=== PATIENT | female | born 1995 | race Caucasian/White ===

== ENCOUNTER 2017-06-06 00:06 | Inpatient (IN) | payer MEDICAID ==
[2017-06-06] MEDS ORDERED: Butorphanol 1 MG/ML SDV IVPUSH PRN (00:37)
[2017-06-06] MEDS ORDERED: Terbutaline 1 MG/ML SDV SUBCUT PRN (00:37)
[2017-06-06] MEDS ORDERED: Sodium Chloride 0.9% 2.5 ML Syringe FLUSH PRN (00:37)
[2017-06-06] MEDS ORDERED: Carboprost Tromethamine 250 MCG/1 ML Amp IM PRN (00:37)
[2017-06-06] MEDS ORDERED: Methylergonovine 0.2 MG/1 ML Amp IM PRN (00:37)
[2017-06-06] MEDS ORDERED: Tranexamic Acid 1,000 MG in Sodium Chloride 0.9% 100 ML IV PRN (00:37)
[2017-06-06] MEDS ORDERED: Sodium Chloride 0.9% 10 ML Syringe FLUSH PRN (00:37)
[2017-06-06] MEDS ORDERED: Water For Irrigation,Sterile 1,000 ML Container IRR PRN (00:37)
[2017-06-06] MEDS ORDERED: Lidocaine 1% 50 ML MDV INJECT PRN (00:37)
[2017-06-06] MEDS ORDERED: Nalbuphine 10 MG/1 ML Vial IVPUSH PRN (00:37)
[2017-06-06] MEDS ORDERED: Misoprostol 200 MCG Tab PO PRN (00:37)
[2017-06-06] MEDS ORDERED: Oxytocin/0.9 % Sodium Chloride 30 UNIT/500 ML BAG IV SCH ×2 (00:45→02:45)
[2017-06-06] MEDS ORDERED: Misoprostol 25 MCG (1/4 of 100 MCG) Tab VAG SCH (01:00)
[2017-06-06] MEDS: Lactated Ringers 1,000 ML IV SCH ×3 (02:50→15:15)
[2017-06-06] MEDS ORDERED: Misoprostol 25 MCG (1/4 of 100 MCG) Tab VAG PRN (05:00)
[2017-06-06] MEDS ORDERED: Ropivacaine 0.2% 2 MG/ML 20 ML SDV ONE (07:42)
--- NOTE | 2017-06-06 08:10 | PCM.PREANE ---
Preanesthetic Assessment - Procedure Proposed Procedure: labor epidural induction for polyhydramnios - Anesthesia/Transfusion/Family Hx Anesthesia History: Prior Anesthesia Without Reaction Family History of Anesthesia Reaction: No Transfusion History: No Prior Transfusion(s) - Review of Systems Other: Reports: None - Physical Assessment Height: 5 ft 10 in Weight: 121.109 kg ASA Class: 2 Mental Status: Alert & Oriented x3 Airway Class: Mallampati = 2 Dentition: Reports: Normal Dentition Thyro-Mental Finger Breadths: 3 Mouth Opening Finger Breadths: 3 ROM/Head Extension: Full - Lab Values: Laboratory Last Values WBC 11.06 K/uL (4.0-11.0) H 06/06/17 01:08 RBC 3.92 M/uL (4.30-5.90) L 06/06/17 01:08 Hgb 11.3 g/dL (12.0-16.0) L 06/06/17 01:08 Hct 34.0 % (36.0-46.0) L 06/06/17 01:08 MCV 86.7 fL (80.0-98.0) 06/06/17 01:08 MCH 28.8 pg (27.0-32.0) 06/06/17 01:08 MCHC 33.2 g/dL (31.0-37.0) 06/06/17 01:08 RDW Std Deviation 45.3 fl (28.0-62.0) 06/06/17 01:08 RDW Coeff of Sebastien 15 % (11.0-15.0) 06/06/17 01:08 Plt Count 220 K/uL (150-400) 06/06/17 01:08 MPV 9.60 fL (7.40-12.00) 06/06/17 01:08 Nucleated RBC % 0.0 /100WBC 06/06/17 01:08 Nucleated RBCs # 0 K/uL 06/06/17 01:08 Urine Opiates Screen NEGATIVE (NEGATIVE) 06/06/17 01:50 Ur Oxycodone Screen NEGATIVE (NEGATIVE) 06/06/17 01:50 Urine Methadone Screen NEGATIVE (NEGATIVE) 06/06/17 01:50 Ur Barbiturates Screen NEGATIVE (NEGATIVE) 06/06/17 01:50 Ur Phencyclidine Scrn NEGATIVE (NEGATIVE) 06/06/17 01:50 Ur Amphetamine Screen NEGATIVE (NEGATIVE) 06/06/17 01:50 U Methamphetamines Scrn NEGATIVE (NEGATIVE) 06/06/17 01:50 U Benzodiazepines Scrn NEGATIVE (NEGATIVE) 06/06/17 01:50 U Cocaine Metab Screen NEGATIVE (NEGATIVE) 06/06/17 01:50 U Marijuana (THC) Screen NEGATIVE (NEGATIVE) 06/06/17 01:50 Blood Type O POSITIVE 06/06/17 01:08 Antibody Screen NEGATIVE 06/06/17 01:08 - Allergies Allergies/Adverse Reactions: Allergies Allergy/AdvReac Type Severity Reaction Status Date / Time No Known Allergies Allergy Verified 05/13/14 11:24 - Blood Blood Available: Yes Product(s) Available: PRBC - Acknowledgements Anesthesia Type Planned: Epidural Pt an Appropriate Candidate for the Planned Anesthesia: Yes Alternatives and Risks of Anesthesia Discussed w Pt/Guardian: Yes Pt/Guardian Understands and Agrees with Anesthesia Plan: Yes PreAnesthesia Questionnaire 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 - SUBSTANCE USE Smoking Status *Q: Former Smoker Tobacco Use Within Last Twelve Months: Cigarettes Second Hand Smoke Exposure: Yes Days Per Week of Alcohol Use: 0 Number of Drinks Per Day: 2 Total Drinks Per Week: 0 Recreational Drug Use History: Yes Recreational Drug Type: Reports: Heroin, Marijuana/Hashish - HOME MEDS Home Medications: Home Meds Acetaminophen [Tylenol] 325 mg PO PRN MDD 4 grams 06/06/17 [History] Calcium Carbonate [Tums] 500 mg PO PRN 06/06/17 [History] Vits #93/Iron Fum/FA [ Formula Tablet] 1 tab PO DAILY 06/06/17 [History] - CURRENT (IN HOUSE) MEDS Current Meds: Current Medications Butorphanol Tartrate (Stadol) 1 mg IVPUSH Q1H PRN PRN Reason: Pain Carboprost Tromethamine (Hemabate Ds) 250 mcg IM ASDIRECTED PRN PRN Reason: Post Hemorrhage Lactated Ringer's (Ringers, Lactated) 1,000 mls @ 150 mls/hr IV ASDIRECTED [facility] Last Admin: 06/06/17 02:50 Dose: 150 mls/hr Oxytocin/Sodium Chloride (Oxytocin 30 Unit/500 Ml-Ns) 30 unit in 500 mls @ 999 mls/hr IV TITRATE [facility] Tranexamic Acid 1,000 mg/ (Sodium Chloride) 110 mls @ 660 mls/hr IV ONETIME PRN PRN Reason: Bleeding Oxytocin/Sodium Chloride (Oxytocin 30 Unit/500 Ml-Ns) 30 unit in 500 mls @ 2 mls/hr IV TITRATE [facility]; Protocol Last Infusion: 06/06/17 06:07 Dose: 12 munits/min, 12 mls/hr Lidocaine HCl (Xylocaine 1%) 50 ml INJECT .ONCE PRN PRN Reason: Laceration repair Methylergonovine Maleate (Methergine) 0.2 mg IM ASDIRECTED PRN PRN Reason: Post Hemorrhage Misoprostol (Cytotec) 200 mcg PO .ONCE PRN PRN Reason: Post Hemorrhage Misoprostol (Cytotec) 25 mcg VAG .ONCE [facility] Misoprostol (Cytotec) 25 mcg VAG Q4H PRN PRN Reason: Cervical Ripening Nalbuphine HCl (Nubain) 10 mg IVPUSH Q1H PRN PRN Reason: Pain (severe 7-10) Sodium Chloride (Saline Flush) 10 ml FLUSH ASDIRECTED PRN PRN Reason: Keep Vein Open Sodium Chloride (Saline Flush) 2.5 ml FLUSH ASDIRECTED PRN PRN Reason: Keep Vein Open Sterile Water (Sterile Water For Irrigation) 1,000 ml IRR ASDIRECTED PRN PRN Reason: delivery Terbutaline Sulfate (Brethine) 0.25 mg SUBCUT ASDIRECTED PRN PRN Reason: Tacysystole Discontinued Medications Oxytocin 20 unit/ Sodium (Chloride) 1,002 mls @ 6.01 mls/hr IV TITRATE [facility]; Protocol Fentanyl/Bupivacaine HCl (Twpxzkty-Sqcya-Pk 2 Mcg/Ml-0.125%) Confirm Administered Dose 100 mls @ as directed EP .STK-MED ONE Stop: 06/06/17 07:43 Ropivacaine (Naropin 0.2%) Confirm Administered Dose 20 ml .ROUTE .STK-MED ONE Stop: 06/06/17 07:43
[2017-06-06] MEDS ORDERED: Docusate Sodium 100 MG Cap PO PRN (17:46)
[2017-06-06] MEDS ORDERED: Benzocaine/Menthol 20%-0.5% Spray 78 GM Cannister TOP PRN (17:46)
[2017-06-06] MEDS ORDERED: Ibuprofen 400 MG Tab PO PRN (17:46)
[2017-06-06] MEDS ORDERED: Acetaminophen 500 MG Tab PO PRN ×2 (17:46)
[2017-06-06] MEDS ORDERED: Witch Hazel Medicated Pads 40/Jar TOP PRN (17:46)
[2017-06-06] MEDS ORDERED: Lanolin 100% Cream 7 GM Tube TOP PRN (17:46)
[2017-06-06] MEDS ORDERED: Bisacodyl 10 MG Supp RECTAL PRN (17:46)
--- NOTE | 2017-06-06 21:46 | OR ---
SURGEON: PAIGE CAMPBELL PREOPERATIVE DIAGNOSES: A 39 weeks and polyhydramnios, GBS negative. POSTOPERATIVE DIAGNOSIS: Status post spontaneous vaginal delivery. ANESTHESIA: Epidural. PROCEDURE PERFORMED: Normal spontaneous vaginal delivery. FINDINGS: Live male delivered at 5:30 p.m. scores of 9 and 9, Wt 7lb 140z. Cord around the neck Three-vessel cord was noted around the neck. Perineal intact. ESTIMATED BLOOD LOSS: 350 mL. BRIEF HISTORY ABOUT THE PATIENT: She was 3, para 1-0-2-1, 39 weeks 0 days, who was admitted for induction of labor secondary to polyhydramnios. The patient was on admission and was noted to be 3 cm dilated. The patient received Pitocin, and AROM was done. IUPC was placed The patient made adequate change, she made good progress in labor and became fully dilated. PROCEDURE IN DETAIL: With the patient being fully dilated, she was encouraged to push. With the patient's good pushing effort, she delivered head. There was a cord noted around the neck, which was reduced. The anterior shoulder was delivered followed by the posterior shoulder, and body of the . The infant was placed on the maternal abdomen. The cord clamping was observed. The cord was clamped and cut. Arterial and venous cord gases were obtained. The placenta was then delivered via controlled cord traction. The uterus was then noted to be firm. The perineum was inspected and noted to be intact. All instrument and pad counts were correct x2. The patient was left in the labour room bonding with baby. MOHAN BROWN /[id number] [facility]
[2017-06-07] MEDS: Ibuprofen 800 MG Tab PO PRN (04:44)
[2017-06-07] MEDS: oxyCODONE 5 MG Tab PO PRN ×2 (10:19→18:17)
--- NOTE | 2017-06-07 10:24 | PCM.PNPP ---
- General Info Date of Service: 06/07/17 Functional Status: Reports: Pain Controlled, Tolerating Diet, Ambulating, Urinating - Review of Systems General: Denies: Fever Pulmonary: Denies: Shortness of Breath Cardiovascular: Denies: Chest Pain, Palpitations, Lightheadedness Gastrointestinal: Reports: Abdominal Pain (cramping, not controlled by motrin). Denies: Nausea, Vomiting Genitourinary: Denies: Flank Pain Psychiatric: Reports: No Symptoms - General Info Date of Service: 06/07/17 - Patient Data Vital Signs - Most Recent: Last Vital Signs Temp 36.6 C 06/07/17 07:00 Pulse 75 06/07/17 07:00 Resp 16 06/07/17 07:00 BP 116/61 06/07/17 07:00 Pulse Ox 96 06/07/17 07:00 Weight - Most Recent: 121.109 kg Lab Results - Last 24 Hours: Laboratory Results - last 24 hr 06/07/17 Range/Units 06:32 Hgb 10.1 L (12.0-16.0) g/dL Hct 30.8 L (36.0-46.0) % Med Orders - Current: Current Medications Acetaminophen (Tylenol Extra Strength) 500 mg PO Q4H PRN PRN Reason: Pain Acetaminophen (Tylenol Extra Strength) 1,000 mg PO Q4H PRN PRN Reason: Pain Benzocaine/Menthol (Dermoplast Pain Relief 20%-0.5% [place]) 78 gm TOP ASDIRECTED PRN PRN Reason: Perineal Comfort Measure Bisacodyl (Dulcolax) 10 mg RECTAL .ONCE PRN PRN Reason: Constipation Carboprost Tromethamine (Hemabate Ds) 250 mcg IM ASDIRECTED PRN PRN Reason: Post Hemorrhage Docusate Sodium (Colace) 100 mg PO BID PRN PRN Reason: Constipation Emollient Ointment (Lansinoh Hpa) 0 gm TOP ASDIRECTED PRN PRN Reason: Sore Nipples Lactated Ringer's (Ringers, Lactated) 1,000 mls @ 150 mls/hr IV ASDIRECTED [facility] Last Admin: 06/06/17 15:15 Dose: 150 mls/hr Oxytocin/Sodium Chloride (Oxytocin 30 Unit/500 Ml-Ns) 30 unit in 500 mls @ 999 mls/hr IV TITRATE [facility] Tranexamic Acid 1,000 mg/ (Sodium Chloride) 110 mls @ 660 mls/hr IV ONETIME PRN PRN Reason: Bleeding Oxytocin/Sodium Chloride (Oxytocin 30 Unit/500 Ml-Ns) 30 unit in 500 mls @ 2 mls/hr IV TITRATE [facility]; Protocol Last Infusion: 06/06/17 17:32 Dose: 500 munits/min, 500 mls/hr Ibuprofen (Motrin) 400 mg PO Q4H PRN PRN Reason: Pain Ibuprofen (Motrin) 800 mg PO Q6H PRN PRN Reason: Pain Last Admin: 06/07/17 04:44 Dose: 800 mg Lidocaine HCl (Xylocaine 1%) 50 ml INJECT .ONCE PRN PRN Reason: Laceration repair Methylergonovine Maleate (Methergine) 0.2 mg IM ASDIRECTED PRN PRN Reason: Post Hemorrhage Misoprostol (Cytotec) 200 mcg PO .ONCE PRN PRN Reason: Post Hemorrhage Misoprostol (Cytotec) 25 mcg VAG .ONCE [facility] Misoprostol (Cytotec) 25 mcg VAG Q4H PRN PRN Reason: Cervical Ripening Oxycodone HCl (Oxycodone) 5 mg PO Q2H PRN PRN Reason: Pain Last Admin: 06/07/17 10:19 Dose: 5 mg Sodium Chloride (Saline Flush) 10 ml FLUSH ASDIRECTED PRN PRN Reason: Keep Vein Open Sodium Chloride (Saline Flush) 2.5 ml FLUSH ASDIRECTED PRN PRN Reason: Keep Vein Open Sterile Water (Sterile Water For Irrigation) 1,000 ml IRR ASDIRECTED PRN PRN Reason: delivery Last Admin: 06/06/17 18:11 Dose: 1,000 ml Terbutaline Sulfate (Brethine) 0.25 mg SUBCUT ASDIRECTED PRN PRN Reason: Tacysystole Witch Sharmila (Tucks) 1 pad TOP ASDIRECTED PRN PRN Reason: comfort care Discontinued Medications Butorphanol Tartrate (Stadol) 1 mg IVPUSH Q1H PRN PRN Reason: Pain Oxytocin 20 unit/ Sodium (Chloride) 1,002 mls @ 6.01 mls/hr IV TITRATE [facility]; Protocol Fentanyl/Bupivacaine HCl (Vfmarqfd-Cnbfy-La 2 Mcg/Ml-0.125%) Confirm Administered Dose 100 mls @ as directed EP .STK-MED ONE Stop: 06/06/17 07:43 Fentanyl/Bupivacaine HCl (Qemligrx-Sotof-Ee 2 Mcg/Ml-0.125%) Confirm Administered Dose 100 mls @ as directed EP .STK-MED ONE Stop: 06/06/17 15:54 Nalbuphine HCl (Nubain) 10 mg IVPUSH Q1H PRN PRN Reason: Pain (severe 7-10) Ropivacaine (Naropin 0.2%) Confirm Administered Dose 20 ml .ROUTE .STK-MED ONE Stop: 06/06/17 07:43 - Interaction Support Person: Mother - Recovery Exam Fundal Tone: Firm Fundal Level: 1 Fingerbreadths Below Umbilicus Fundal Placement: Midline Lochia Amount: Small Lochia Color: Rubra/Red Perineum Description: Intact, Minimal Bruising/Swelling Episiotomy/Laceration: None Bladder Status: Voiding Urinary Elimination: Voided - Exam General: Alert, Oriented Lungs: Rhonchi Cardiovascular: Regular Rate, Regular Rhythm GI/Abdominal Exam: Normal Bowel Sounds, Soft Extremities: Pedal Edema (1+). No: Reinaldo's Sign Skin: Warm, Dry, Intact Psy/Mental Status: Alert - Problem List & Annotations (1) Vaginal delivery SNOMED Code(s): 886446084 Code(s): O80 - ENCOUNTER FOR FULL-TERM UNCOMPLICATED DELIVERY Status: Acute Current Visit: Yes - Problem List Review Problem List Initiated/Reviewed/Updated: Yes - Assessment Assessment:: PPD 1 status post - Plan Plan:: Continue cares, work with .
--- NOTE | 2017-06-07 15:35 | PCM48HPAN ---
Post Anesthesia Note - EVALUATION WITHIN 48HRS OF ANESTHETIC Vital Signs in Normal Range: Yes Patient Participated in Evaluation: Yes Respiratory Function Stable: Yes Airway Patent: Yes Cardiovascular Function Stable: Yes Hydration Status Stable: Yes Pain Control Satisfactory: Yes Nausea and Vomiting Control Satisfactory: Yes Mental Status Recovered: Yes Resp Rate: 16
[2017-06-08] MEDS: oxyCODONE 5 MG Tab PO PRN ×2 (04:37→10:13)
[2017-06-08 09:44] VITALS: BP 119/63
--- NOTE | 2017-06-08 09:54 | PCM.PNPP ---
- General Info Date of Service: 06/15/17 Functional Status: Reports: Pain Controlled, Tolerating Diet, Ambulating, Urinating - Review of Systems General: Denies: Fever Pulmonary: Denies: Shortness of Breath Cardiovascular: Denies: Chest Pain, Palpitations, Lightheadedness Gastrointestinal: Reports: Flatus. Denies: Abdominal Pain, Nausea, Vomiting Genitourinary: Denies: Flank Pain Skin: Reports: No Symptoms Psychiatric: Reports: No Symptoms - General Info Date of Service: 06/08/17 - Patient Data Vital Signs - Most Recent: Last Vital Signs Temp 36.3 C 06/08/17 08:00 Pulse 64 06/08/17 08:00 Resp 16 06/08/17 08:00 BP 119/63 06/08/17 08:00 Pulse Ox 97 06/08/17 08:00 Weight - Most Recent: 121.109 kg Med Orders - Current: Current Medications Acetaminophen (Tylenol Extra Strength) 500 mg PO Q4H PRN PRN Reason: Pain Acetaminophen (Tylenol Extra Strength) 1,000 mg PO Q4H PRN PRN Reason: Pain Last Admin: 06/07/17 13:34 Dose: 1,000 mg Benzocaine/Menthol (Dermoplast Pain Relief 20%-0.5% [place]) 78 gm TOP ASDIRECTED PRN PRN Reason: Perineal Comfort Measure Bisacodyl (Dulcolax) 10 mg RECTAL .ONCE PRN PRN Reason: Constipation Carboprost Tromethamine (Hemabate Ds) 250 mcg IM ASDIRECTED PRN PRN Reason: Post Hemorrhage Docusate Sodium (Colace) 100 mg PO BID PRN PRN Reason: Constipation Emollient Ointment (Lansinoh Hpa) 0 gm TOP ASDIRECTED PRN PRN Reason: Sore Nipples Lactated Ringer's (Ringers, Lactated) 1,000 mls @ 150 mls/hr IV ASDIRECTED [facility] Last Admin: 06/06/17 15:15 Dose: 150 mls/hr Oxytocin/Sodium Chloride (Oxytocin 30 Unit/500 Ml-Ns) 30 unit in 500 mls @ 999 mls/hr IV TITRATE [facility] Tranexamic Acid 1,000 mg/ (Sodium Chloride) 110 mls @ 660 mls/hr IV ONETIME PRN PRN Reason: Bleeding Oxytocin/Sodium Chloride (Oxytocin 30 Unit/500 Ml-Ns) 30 unit in 500 mls @ 2 mls/hr IV TITRATE [facility]; Protocol Last Infusion: 06/06/17 17:32 Dose: 500 munits/min, 500 mls/hr Ibuprofen (Motrin) 400 mg PO Q4H PRN PRN Reason: Pain Ibuprofen (Motrin) 800 mg PO Q6H PRN PRN Reason: Pain Last Admin: 06/07/17 04:44 Dose: 800 mg Lidocaine HCl (Xylocaine 1%) 50 ml INJECT .ONCE PRN PRN Reason: Laceration repair Methylergonovine Maleate (Methergine) 0.2 mg IM ASDIRECTED PRN PRN Reason: Post Hemorrhage Misoprostol (Cytotec) 200 mcg PO .ONCE PRN PRN Reason: Post Hemorrhage Misoprostol (Cytotec) 25 mcg VAG .ONCE [facility] Misoprostol (Cytotec) 25 mcg VAG Q4H PRN PRN Reason: Cervical Ripening Oxycodone HCl (Oxycodone) 5 mg PO Q2H PRN PRN Reason: Pain Last Admin: 06/08/17 04:37 Dose: 5 mg Sodium Chloride (Saline Flush) 10 ml FLUSH ASDIRECTED PRN PRN Reason: Keep Vein Open Sodium Chloride (Saline Flush) 2.5 ml FLUSH ASDIRECTED PRN PRN Reason: Keep Vein Open Sterile Water (Sterile Water For Irrigation) 1,000 ml IRR ASDIRECTED PRN PRN Reason: delivery Last Admin: 06/06/17 18:11 Dose: 1,000 ml Terbutaline Sulfate (Brethine) 0.25 mg SUBCUT ASDIRECTED PRN PRN Reason: Tacysystole Witch Sharmila (Tucks) 1 pad TOP ASDIRECTED PRN PRN Reason: comfort care Discontinued Medications Butorphanol Tartrate (Stadol) 1 mg IVPUSH Q1H PRN PRN Reason: Pain Oxytocin 20 unit/ Sodium (Chloride) 1,002 mls @ 6.01 mls/hr IV TITRATE [facility]; Protocol Fentanyl/Bupivacaine HCl (Dggjyifb-Fmuow-Mm 2 Mcg/Ml-0.125%) Confirm Administered Dose 100 mls @ as directed EP .[facility] ONE Stop: 06/06/17 07:43 Fentanyl/Bupivacaine HCl (Gqpcntzx-Jfnqu-Hn 2 Mcg/Ml-0.125%) Confirm Administered Dose 100 mls @ as directed EP .STK-MED ONE Stop: 06/06/17 15:54 Nalbuphine HCl (Nubain) 10 mg IVPUSH Q1H PRN PRN Reason: Pain (severe 7-10) Ropivacaine (Naropin 0.2%) Confirm Administered Dose 20 ml .ROUTE .STK-MED ONE Stop: 06/06/17 07:43 - Interaction Support Person: Mother - Recovery Exam Fundal Tone: Firm Fundal Level: At Umbilicus Fundal Placement: Midline Lochia Amount: Small Lochia Color: Rubra/Red Perineum Description: Intact, Minimal Bruising/Swelling Episiotomy/Laceration: None Bladder Status: Voiding Urinary Elimination: Voided - Exam General: Alert, Oriented Lungs: Normal Respiratory Effort Cardiovascular: Regular Rate, Regular Rhythm GI/Abdominal Exam: Normal Bowel Sounds, Soft Extremities: Pedal Edema (trace). No: Reinaldo's Sign Skin: Warm, Dry, Intact Psy/Mental Status: Alert, Normal Affect - Problem List & Annotations (1) Vaginal delivery SNOMED Code(s): 642795103 Code(s): O80 - ENCOUNTER FOR FULL-TERM UNCOMPLICATED DELIVERY Status: Acute Current Visit: Yes - Problem List Review Problem List Initiated/Reviewed/Updated: Yes - Assessment Assessment:: PPD 2 status post - Plan Plan:: Discharge to home today. Discharge instructions reviewed. Follow up at [facility] 6 weeks. Infection and bleeding warnings reviewed.
[2017-06-08] MEDS: Ibuprofen 800 MG Tab PO PRN (12:43)
== END 2017-06-08 14:00 | disposition home or self-care (01) | DRG 775 ==
LOC: MW.OBCHECK 00:06 → MW.OB 00:12 → MW.OBCHECK 00:38 → OBSVTOIN 17:30 → MW.OB 06-07 00:30
PROVIDERS: ADMIT Obstetrics & Gynecology; ATTEND Obstetrics & Gynecology
PROC: 10E0XZZ Delivery of Products of Conception, External Approach (ICD-10-PCS; principal; 2017-06-06)
PROC: 3E033VJ Introduction of Other Hormone into Peripheral Vein, Percutaneous Approach (ICD-10-PCS; 2017-06-06)
PROC: 10907ZC Drainage of Amniotic Fluid, Therapeutic from Products of Conception, Via Natural or Artificial Opening (ICD-10-PCS; 2017-06-06)
PROC: 10H07YZ Insertion of Other Device into Products of Conception, Via Natural or Artificial Opening (ICD-10-PCS; 2017-06-06)
DX: O40.3XX0 Polyhydramnios, third trimester, not applicable or unspecified (principal); O69.1XX0 Labor and delivery complicated by cord around neck, with compression, not applicable or unspecified; Z3A.39 39 weeks gestation of pregnancy; Z37.0 Single live birth
CPT/HCPCS: 36415; 59025; 59409; 80305; 85014; 85018; 85027; 86850; 86900; 86901; A9270-GY; J2590; J7120